=== PATIENT | female | born 1990 | race African-American/Black ===

== ENCOUNTER 2016-05-25 04:34 | Emergency (ER) | payer SELFPAY ==
[2016-05-25] MEDS ORDERED: Ibuprofen 400 MG TAB ONE (05:44)
[2016-05-25] MEDS ORDERED: cloNIDine 0.1 MG TAB PO ONE (06:00)
[2016-05-25] MEDS ORDERED: ONDANSETRON 4 MG VIAL ONE (12:48)
[2016-05-25] MEDS ORDERED: DILAUDID 1 MG/ML AMP ONE (12:48)
[2016-05-25] MEDS ORDERED: SODIUM CHLORIDE 0.9% 1,000 ML ONE (12:49)
== END 2016-05-25 07:03 | disposition home or self-care (01) ==
LOC: ER 04:34
DX: S16.1XXA Strain of muscle, fascia and tendon at neck level, initial encounter (principal); I10 Essential (primary) hypertension
CPT/HCPCS: 81003; 93005